=== PATIENT | female | born 1960 | race Two or more races ===

== ENCOUNTER 2020-04-18 18:29 | Inpatient (IN) | payer SELFPAY ==
[~2020-04-18] VITALS: Ht 160 cm; Wt 53.5 kg
[2020-04-18] MEDS ORDERED: SODIUM CHLORIDE 0.9% 1,000 ML IV ONE (19:15)
[2020-04-18 20:17] LABS: BASOPHILS % 0.8 % (0.0-2.0); EOSINOPHILS % 3.5 % (0.0-5.0); HEMATOCRIT. 36.4 % (36.0-48.0); HEMOGLOBIN. 12.6 g/dL (12.0-16.0); LYMPHOCYTES % 16.7 % (20.0-50.0); MEAN CORPUSCULAR HEMOGLOBIN 35.2 pg (28.0-32.0); MEAN CORPUSCULAR VOLUME 101.8 fL (81.0-99.0); MEAN PLATELET VOLUME 9.1 fl (7.4-10.4); MONOCYTES % 8.3 % (2.0-8.0); NEUTROPHILS % 70.7 % (40.0-76.0); PLATELET 248 x1000/uL (130-400); RED BLOOD CELL COUNT 3.58 mill/uL (4.2-5.4)
[2020-04-18 20:21] LABS: CLARITY URINE CLOUDY (CLEAR); COLOR URINE DARK YELLOW (YELLOW); KETONES URINE 1+ (NEGATIVE); LEUKOCYTE ESTERASE URINE 1+ (NEGATIVE); NITRITE URINE POSITIVE (NEGATIVE); OCCULT BLOOD URINE NEGATIVE (NEGATIVE); PROTEIN URINE TRACE (NEGATIVE)
[2020-04-18 20:27] LABS: CHLORIDE 109 mEq/L (98-107)
[2020-04-18 20:33] LABS: ETHANOL BLOOD < 10 mg/dL
[2020-04-18 20:46] LABS: *AMPHETAMINES SCREEN URINE NEGATIVE (NEGATIVE); *BARBITURATES SCREEN URINE NEGATIVE (NEGATIVE); *BENZODIAZEPINES SCREEN URINE NEGATIVE (NEGATIVE); *COCAINE SCREEN URINE NEGATIVE (NEGATIVE); CANNABINOID URINE SCREEN NEGATIVE (NEGATIVE); METHADONE URINE SCREEN NEGATIVE (NEGATIVE); OPIATES URINE SCREEN NEGATIVE (NEGATIVE); PHENCYCLIDINE URINE SCREEN NEGATIVE (NEGATIVE)
[2020-04-18] MEDS ORDERED: POTASSIUM CHLORIDE 20MEQ TABLET SR PO ONE (21:15)
[2020-04-18] MEDS ORDERED: CEFTRIAXONE 1 G PREMIX 50 ML IV ONE (21:15)
[2020-04-18] MEDS ORDERED: SODIUM CHLORIDE 0.9% 1000ML BAG (SEPSIS BOLUS) IV ONE (21:15)
[2020-04-18] MEDS ORDERED: KCL 10MEQ/50ML PREMIX 50 ML IV ONE (21:15)
[2020-04-18] MEDS ORDERED: ONDANSETRON HCL 4MG/2ML INJ IV PRN (22:45)
[2020-04-18] MEDS ORDERED: CLONIDINE 0.1MG TABLET PO PRN (22:45)
[2020-04-18] MEDS ORDERED: DOCUSATE SODIUM 100MG CAPSULE PO PRN (22:45)
[2020-04-18] MEDS ORDERED: IPRATROPIUM/ALBUTEROL 0.5-3(2.5)MG/3ML NEB NEB PRN (22:45)
[2020-04-18] MEDS ORDERED: ACETAMINOPHEN 325MG TABLET PO PRN ×2 (22:45)
[2020-04-18] MEDS ORDERED: MAGNESIUM/ALUMINUM HYDROXIDE/SIMETHICONE 30ML UDC PO PRN (22:45)
[2020-04-18] MEDS ORDERED: GUAIFENESIN 200MG/10ML SUGAR FREE UDC PO PRN (22:45)
[2020-04-18] MEDS ORDERED: POTASSIUM CHLORIDE 20MEQ TABLET SR PO NR (23:00)
[2020-04-18] MEDS: SODIUM CHLORIDE 0.9% 1,000 ML IV SCH (23:18)
[2020-04-19] MEDS ORDERED: LEVOFLOXACIN 500MG PREMIX 100 ML IV SCH (00:30)
[2020-04-19] MEDS ORDERED: LORAZEPAM 2MG/ML CPJ IV ONE (01:00)
[2020-04-19 01:01] LABS: T4 FREE 0.87 ng/dL (0.76-1.46)
[2020-04-19 06:21] LABS: BASOPHILS % 1.4 % (0.0-2.0); EOSINOPHILS % 9.5 % (0.0-5.0); HEMATOCRIT. 37.2 % (36.0-48.0); HEMOGLOBIN. 12.7 g/dL (12.0-16.0); LYMPHOCYTES % 31.2 % (20.0-50.0); MEAN CORPUSCULAR VOLUME 102.6 fL (81.0-99.0); MEAN PLATELET VOLUME 9.3 fl (7.4-10.4); MONOCYTES % 9.6 % (2.0-8.0); NEUTROPHILS % 48.3 % (40.0-76.0); PLATELET 216 x1000/uL (130-400); RED BLOOD CELL COUNT 3.63 mill/uL (4.2-5.4); RED CELL DISTRIBUTION WIDTH 13.3 % (11.6-14.6)
[2020-04-19 06:28] LABS: CHLORIDE 115 mEq/L (98-107)
[2020-04-19 06:34] LABS: PHOSPHORUS 2.7 mg/dL (2.5-4.9)
[2020-04-19 06:37] LABS: CREATINE KINASE 107 IU/L (26-192)
[2020-04-19 06:40] LABS: CREATINE KINASE MB FRACTION 2.8 ng/mL (0.5-3.6)
[2020-04-19 06:59] LABS: FOLIC ACID (FOLATE) SERUM 15.8 ng/mL (>5.38)
[2020-04-19] MEDS: ENOXAPARIN 40MG/0.4ML SYR SUBCUT SCH (09:37)
[2020-04-19] MEDS: SODIUM CHLORIDE 0.9% 1,000 ML IV SCH ×2 (12:28→18:03)
[2020-04-19 14:17] LABS: CREATINE KINASE 160 IU/L (26-192)
[2020-04-19 14:18] LABS: CREATINE KINASE MB FRACTION 3.3 ng/mL (0.5-3.6)
[2020-04-19 15:45] VITALS: BP 121/61
[2020-04-19 15:47] VITALS: BP 121/61
[2020-04-19] MEDS: HALOPERIDOL LACTATE 5MG/ML VIAL IM PRN (19:23)
[2020-04-19 20:00] VITALS: BP 110/53
[2020-04-19] MEDS: CEFTRIAXONE 1,000 MG in DEXTROSE 5% WATER 50 ML IV SCH (20:59)
[2020-04-19] MEDS ORDERED: CEFTRIAXONE 1 G PREMIX 50 ML IV SCH (21:00)
[2020-04-19] MEDS: LEVOFLOXACIN 500MG PREMIX 100 ML IV SCH (23:03)
[2020-04-20] VITALS (7 sets, daily range): BP systolic 109–155; BP diastolic 52–83
[2020-04-20] MEDS: ENOXAPARIN 40MG/0.4ML SYR SUBCUT SCH (08:25)
[2020-04-20] MEDS: HALOPERIDOL LACTATE 5MG/ML VIAL IM PRN ×2 (09:28→17:36)
[2020-04-20] MEDS ORDERED: PIPERONYL/PYRETHRINS (RID)120 ML SHAMPOO TOP SCH ×2 (12:00→13:00)
[2020-04-20] MEDS: SODIUM CHLORIDE 0.9% 1,000 ML IV SCH (14:52)
[2020-04-20] MEDS: CEFTRIAXONE 1,000 MG in DEXTROSE 5% WATER 50 ML IV SCH (20:58)
[2020-04-20] MEDS: LEVOFLOXACIN 500MG PREMIX 100 ML IV SCH (23:58)
[2020-04-21] VITALS: BP 142/61
[2020-04-21 08:00] VITALS: BP 124/88
[2020-04-21] MEDS: SODIUM CHLORIDE 0.9% 1,000 ML IV SCH ×2 (09:28→18:02)
[2020-04-21] MEDS: ENOXAPARIN 40MG/0.4ML SYR SUBCUT SCH (09:28)
[2020-04-21 12:00] VITALS: BP 105/62
[2020-04-21] MEDS: HALOPERIDOL LACTATE 5MG/ML VIAL IM PRN (14:50)
[2020-04-21 16:00] VITALS: BP 143/71
[2020-04-21 20:00] VITALS: BP 133/61
[2020-04-21] MEDS: CEFTRIAXONE 1,000 MG in DEXTROSE 5% WATER 50 ML IV SCH (20:51)
[2020-04-21] MEDS: LEVOFLOXACIN 500MG TABLET PO SCH (20:51)
[2020-04-22] VITALS: BP 119/59
[2020-04-22 04:00] VITALS: BP 130/85
[2020-04-22] MEDS: SODIUM CHLORIDE 0.9% 1,000 ML IV SCH ×2 (06:15→20:20)
[2020-04-22 08:02] VITALS: BP 131/74
[2020-04-22] MEDS: ENOXAPARIN 40MG/0.4ML SYR SUBCUT SCH (08:47)
[2020-04-22 11:44] VITALS: BP 137/65
[2020-04-22] MEDS: HALOPERIDOL LACTATE 5MG/ML VIAL IM PRN (12:43)
[2020-04-22 15:45] VITALS: BP 98/61
[2020-04-22 20:00] VITALS: BP 100/45
[2020-04-22] MEDS: CEFTRIAXONE 1,000 MG in DEXTROSE 5% WATER 50 ML IV SCH (20:25)
[2020-04-22] MEDS: LEVOFLOXACIN 500MG TABLET PO SCH (20:25)
[2020-04-23] VITALS: BP 132/57
[2020-04-23 04:00] VITALS: BP 135/87
[2020-04-23 08:00] VITALS: BP 104/65
[2020-04-23] MEDS: ENOXAPARIN 40MG/0.4ML SYR SUBCUT SCH (09:31)
[2020-04-23] MEDS: SODIUM CHLORIDE 0.9% 1,000 ML IV SCH (09:32)
[2020-04-23 12:00] VITALS: BP 128/77
[2020-04-23 12:53] VITALS: BP 128/77
[2020-04-23 16:00] VITALS: BP 115/53
== END 2020-04-23 17:55 | disposition home or self-care (01) | DRG 720 ==
LOC: ER 18:29 → 6WST 22:26 → EDBEDREQTM 22:27 → EDBEDREQ 22:27 → ENRESERV 22:35 → CANRESERV 22:35 → EDBEDREQTM 22:50 → EDBEDREQSVC 22:50 → ENRESERV 04-19 13:11 → 6WST 04-19 16:01
PROVIDERS: ADMIT Internal Medicine; ATTEND Internal Medicine
DX: A41.9 Sepsis, unspecified organism (principal); E44.1 Mild protein-calorie malnutrition; E83.51 Hypocalcemia; E86.0 Dehydration; F17.200 Nicotine dependence, unspecified, uncomplicated; E87.6 Hypokalemia; G92 Toxic encephalopathy; N39.0 Urinary tract infection, site not specified; Z20.828 Contact with and (suspected) exposure to other viral communicable diseases; R65.20 Severe sepsis without septic shock; Z59.0 Homelessness; Z68.20 Body mass index [BMI] 20.0-20.9, adult
CPT/HCPCS: 36415; 71045; 80053; 80061; 80305; 80307; 80320; 80329; 81003; 82550; 82553; 82607; 82746; 82962; 83036; 83540; 83550; 83605; 83735; 84100; 84439; 84443; 84484; 85025; 87077; 87186; 87426; 93005; 93970; 99285; J0696; J1630; J1650; J1956; J2060; J3480; J7030; J7060; G0480